=== PATIENT | male | born 1980 | race Caucasian/White ===

== ENCOUNTER 2016-04-25 12:23 | Emergency (ER) | payer OTHER ==
[2016-04-25 12:49] VITALS: BP 130/75
[2016-04-25] MEDS ORDERED: IBUPROFEN 600 MG TABLET PO ONE (13:05)
--- NOTE | 2016-04-25 13:09 | ERNOTE ---
ENT HPI Presenting Symptoms: dental pain Time Seen by Provider: 04/25/16 12:59 - Immun/Allergies/Home Medications Immunizations: IMMUNIZATION HX Immunizations Up to Date Yes History of Influenza Vaccine No Hx Pneumococcal Vaccination No Allergies/Adverse Reactions: Allergies Allergy/AdvReac Type Severity Reaction Status Date / Time Penicillins Allergy Unknown Verified 04/25/16 12:49 Home Medications: HOME MEDICATIONS Clindamycin HCl [Cleocin HCl] 300 mg PO QID #40 capsule 04/25/16 [Last Taken Unknown] Ibuprofen [Motrin] 600 mg PO Q6H PRN #40 tab 04/25/16 [Last Taken Unknown] - History of Present Illness Narrative: PAtient has dental pain for a month, worse for a week Review of Systems - Review of Systems Constitutional: Absent: fever ENT: Absent: nose congestion, nasal drainage, sore throat Respiratory: Absent: shortness of breath, cough Cardiology: Absent: chest pain Gastrointestinal/Abdominal: Absent: nausea, vomiting, abdominal pain Skin: Absent: rash - Patient's Past Medical History Patient History - Medical: Depression Patient History - Cardiac/Respiratory: No pertinent hx Patient History - Cancer: No Hx of Cancer Patient History - Surgical Procedures: Other Patient History - Other: None - Family History mom Family History - Cardiac/Respiratory: Myocardial Infarction dad Family History - Cardiac/Respiratory: Myocardial Infarction - Social History Living Situations: home Abuse History: No History of abuse Psych History: Hx of Anxiety, Hx of Depression, Hx of Schizophrenia, Hx of Psychiatric Tx Smoking Status: Current some day smoker 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 - Immunizations Immunizations Up to Date: Yes Hx Pneumococcal Vaccination: No History of Influenza Vaccine: No Physical Exam - Physical Exam General Appearance: Present: wd/wn, alert, no apparent distress Ears, Nose, Throat: Present: normal pharynx, other - poor dentition, multiple teeth mission, right lower anterior jaw tender tooth and gum swelling Respiratory: Present: no respiratory distress, normal breath sounds, lungs clear Cardiovascular/Chest: Present: regular rate, rhythm Neurological Exam: Present: alert, oriented, normal mood/affect Skin Exam: Present: normal color, warm/dry ED Progress - Vital Signs Vital Signs: Vital Signs 04/25/16 12:47 Temperature 36.7 C Pulse Rate 87 Respiratory 16 Rate Blood Pressure 130/75 O2 Sat by Pulse 97 Oximetry - Progress/Reassessment Chief Complaint: Dental Problem Departure Clinical Impression: Pain, dental - Departure Disposition: Home self-care Condition: Good Instructions: Dental Abscess, [id number] Additional Instructions: call the dental clinic for follow up Prescriptions: Clindamycin HCl [Cleocin HCl] 300 mg PO QID #40 capsule Ibuprofen [Motrin] 600 mg PO Q6H PRN #40 tab PRN Reason: Pain
[2016-04-25] MEDS ORDERED: IBUPROFEN 600 MG TABLET ONE (13:12)
--- OUTSIDE RECORDS SUMMARY | 2016-04-25 13:14 | XMS REPORT | Continuity of Care Document ---
:1980 Author Organization [email or web address] [place] [address] Care Team Providers Name Role Phone Provider, None Per Patient Primary Care Provider Unavailable Source Comments This disclosure is being made pursuant to the SocialCompare program and maynot contain all information available regarding this patient.[email or web address] Active Allergies and Adverse Reactions Allergen Noted Date Severity Reactions Comments Pcn 06/11/2015 Other (See Comments) Unknown reaction "I was just told not to take it" Current Medications Be aware that medications may not be up to date as of this document. Alwaysverify current medications with the patient. Prescription Sig. Disp. Refills Start Date End Date Status OLANZapine (ZYPREXA) 5 Take 1 tablet by 30 tablet 2 06/14/2015 Active MG tablet mouth nightly as needed (Agitation). Active Problems Problem Noted Date Unspecified psychosis 06/12/2015 Social History Tobacco Use Types Packs/Day Years Used Date Never Assessed Last Filed Vital Signs Vital Sign Reading Time Taken Blood Pressure 102/74 06/15/2015 8:00 AM CDT Pulse 88 06/15/2015 8:00 AM CDT Temperature 36.5 C (97.7 F) 06/15/2015 8:00 AM CDT Respiratory Rate 16 06/15/2015 8:00 AM CDT Height 1.676 m (5' 5.98") 06/11/2015 2:40 PM CDT Weight 60.147 kg (132 lb 9.6 oz) 06/11/2015 2:40 PM CDT Body Mass Index 21.41 06/11/2015 2:40 PM CDT Oxygen Saturation - - Plan of Care Health Maintenance Due Date Last Done Comments Tetanus/Pertussis (1 - Tdap) 11/02/1999 Retired-INFLUENZA VACCINE 10/22/2015 Results from Last 3 Months Not on file
--- OUTSIDE RECORDS SUMMARY | 2016-04-25 13:14 | XMS REPORT | Continuity of Care Document ---
:1980 Author Organization [facility] ([facility]) Address [address] [place] [address] Phone [phone] Care Team Providers Name Role Phone Unavailable Primary Care Provider Unavailable Source Comments This disclosure is being made pursuant to the Care Everywhere program, applicable federal and state laws, and may not contain all informaitonavailable regarding this patient.[facility] ([facility]) Active Allergies and Adverse Reactions Not on File Current Medications Not on file Active Problems Not on file Social History Tobacco Use Types Packs/Day Years Used Date Never Assessed Plan of Care Health Maintenance Due Date Last Done Comments Hepatitis B Vaccine (1 of 3 - Primary Series) 1980 Tdap Vaccine 11/02/1991 Lipid Disorder Screening 1998 MMR Vaccine 1998 Td Vaccine 1998 Varicella Vaccine (1 of 2 - Adult - No Evidence of 1998 Immunity) Influenza Vaccine: Seasonal (#1) 09/21/2015 Results from Last 3 Months Not on file
== END 2016-04-25 13:19 | disposition home or self-care (01) ==
LOC: ER 12:23
DX: K08.89 Other specified disorders of teeth and supporting structures (principal); Z72.0 Tobacco use